=== PATIENT | male | born 1955 | race Caucasian/White ===

== ENCOUNTER 2022-03-29 15:11 | Emergency (ER) | payer MEDICARE, SELFPAY ==
[2022-03-29 16:11] VITALS: BP 161/78; PULSE 71; RESP 18; TEMP 36.9; O2SAT 97; BMI 30.4
--- NOTE | 2022-03-29 16:30 | PC.NURSE ---
VISUAL ACUITY R 20/30 L 20/25
--- NOTE | 2022-03-29 16:33 | PC.NURSE ---
ED MD at examining eye
--- NOTE | 2022-03-29 16:42 | HMH.EDGENADL ---
ED Disposition Clinical Impression: Sensation of foreign body in eye, Chemosis of left conjunctiva Disposition: Home, Self-Care Condition on Discharge: Good Additional Instructions: Use gentamicin drops in the left eye, 1 drop every 4 hours while awake. Follow-up with eye doctor tomorrow. Call at 9 AM to arrange appointment to be seen tomorrow. Dr. Lunsford, Dr. Bellamy, Dr. [facility] [address] [place] [address] Referrals: Provider,Referral, [Primary Care Provider] - - Critical Care Critical Care Time: No Attestation: On 03/29/22, the high probability of a clinically significant, sudden or life threatening deterioration of the following system(s) required my full and direct attention, intervention and personal management. The time I documented below is in addition to time spent performing reported procedures but includes the following listed in this critical care notation. Medical Decision Making - [place] Inquiry Pt receiving controlled substance: No Vital Signs: 03/29/22 16:11 Temperature 98.5 F Temperature Source Oral Pulse Rate [Left Radial] 71 Respiratory Rate 18 Blood Pressure [Right Arm] 161/78 H Blood Pressure Mean [Right Arm] 105 02 Sat by Pulse Oximetry 97 General Adult HPI - General Chief complaint: Eye Problems Stated complaint: left eye irritation Time Seen by Provider: 03/29/22 16:30 Mode of Arrival: Ambulatory Limitations: No Limitations Description of Symptoms (Recalled from ER Triage Doc. by RN): pt to ed c/o left eye irritation. pt states he was mowing the grass x3 days ago and feels like he has something in his eye. pt denies any visual changes. - History of Present Illness HPI narrative: 3 days ago the patient was riding a riding lawnmower mowing grass and felt something go into his left eye. He says there was grass blowing everywhere. He was not using a weed eater or any other high-speed piece of equipment. He says ever since then he has had irritation, redness and swelling of his left eye. No significant visual disturbance. He has a history of glaucoma and has had surgery on both eyes. His eye doctor is in [place] where he lives most of the year. He does not have an eye doctor here. He uses prescription eyedrops in his right eye but not his left. He has been using an [id number] moisturizing eyedrop in his left eye since this began. He has a sensation of a foreign body in his upper portion of his eye. [facility] History - Hepatitis A Screen Attestation statement:: This patient has been screened for Hepatitis A risk factors. I have reviewed the patient's past medical history: Yes ROS Obtained: Yes Systems reviewed as appropriate & no additional complaints - Eyes Eyes: Denies blurry vision, Reports irritation, Denies loss of vision, Reports eye pain, Reports other (Foreign body sensation) Physical Exam - General General appearance: alert, in no apparent distress - Eye Eye exam: Present: PERRL, EOMI, conjunctival injection - Expanded Eye Exam Comment: Appears to have had iridotomies bilaterally. Tetracaine instilled. Patient obtained relief of symptoms with tetracaine. No lid edema. Ecchymosis present medial conjunctiva. Mild conjunctival injection medially. Lids everted, no foreign bodies found. Upper lid swept with a Q-tip. Fluorescein staining with slit-lamp examination shows no uptake or foreign bodies. - Respiratory Respiratory exam: Absent: respiratory distress - Cardiovascular Cardiovascular exam: Present: regular rate - Neurological Exam Neurological exam: Present: alert, oriented X3 - Psychiatric Psychiatric exam: Present: normal affect, normal mood - Skin Skin exam: Present: warm, dry
--- NOTE | 2022-03-29 16:55 | PC.NURSE ---
Danisha B, RN at discussing discharge instructions with the patient
[2022-03-29 17:03] VITALS: BP 158/77; PULSE 65; RESP 18; TEMP 36.9; O2SAT 97
== END 2022-03-29 17:04 | disposition home or self-care (01) ==
PROVIDERS: Emergency Provider Emergency Medicine
DX: H11.422 Conjunctival edema, left eye (principal)
CPT/HCPCS: 99212; G0463